=== PATIENT | female | born 1970 | race Caucasian/White ===

== ENCOUNTER 2018-06-15 20:01 | Emergency (ER) | payer SELFPAY ==
[~2018-06-15] VITALS: Ht 167.6 cm; Wt 61.7 kg
[2018-06-15] MEDS ORDERED: ONDANSETRON ODT 4 MG TAB PO ONE (23:00)
[2018-06-15] MEDS ORDERED: MEPERIDINE HCL (50 MG/ML) 1 ML VIAL IM ONE (23:00)
[2018-06-16 00:06] VITALS: BP 124/80
== END 2018-06-16 00:21 | disposition home or self-care (01) ==
LOC: ER 20:01
DX: S62.617A Displaced fracture of proximal phalanx of left little finger, initial encounter for closed fracture (principal); W01.0XXA Fall on same level from slipping, tripping and stumbling without subsequent striking against object, initial encounter; Y93.89 Activity, other specified; Y92.89 Other specified places as the place of occurrence of the external cause; Y99.8 Other external cause status
CPT/HCPCS: 29125; 73030; 73110; 73130; 96372; 99283; J2175; Q0162